=== PATIENT | female | born 1950 | race Caucasian/White ===

== ENCOUNTER 2016-12-17 06:53 | Day surgery (SDC) | payer OTHER ==
[~2016-12-17] VITALS: Ht 157.5 cm; Wt 96.6 kg
[~2016-12-17 06:53] MED LIST: ASPIR-LOW81 MG PO; CYMBALTA60 MG PO; EFFEXOR XR75 MG PO; FENOFIBRATE160 M1 PO; GLIPIZIDE5 MG PO; INVOKANA100 MG PO; JANUVIA100 MG PO; JARDIANCE10 MG PO; LIPITOR80 MG PO; PIOGLITAZONE HC15 MG PO; SYNTHROID100 MCG PO; VITAMIN D2000 UNIT PO; ZETIA10 MG PO
[2016-12-17 08:26] LABS: POINT-OF-CARE METER ID UU13113696
== END 2016-12-17 15:20 | disposition home or self-care (01) ==
LOC: CATH 06:53
PROVIDERS: Internal Medicine Cardiovascular Disease
DX: I25.10 Atherosclerotic heart disease of native coronary artery without angina pectoris (principal); E11.9 Type 2 diabetes mellitus without complications; I10 Essential (primary) hypertension; E78.5 Hyperlipidemia, unspecified; Z88.2 Allergy status to sulfonamides; Z87.891 Personal history of nicotine dependence; Z79.84 Long term (current) use of oral hypoglycemic drugs; Z82.49 Family history of ischemic heart disease and other diseases of the circulatory system; Z82.5 Family history of asthma and other chronic lower respiratory diseases
CPT/HCPCS: 82948; C1769; C1887; J1644; J2250; J3010